=== PATIENT | male | born 2000 | race Caucasian/White ===

== ENCOUNTER → 2023-01-11 | Outpatient (CLI) | payer OTHER ==
--- NOTE | 2023-01-11 14:05 | XR ---
EXAMINATION TYPE: XR hand complete LT DATE OF EXAM: 01/11/2023 1:59 PM INDICATION: Patient age:Male; 22 years old; Reason for study: S61.203A open wound L middle finger; PHH. COMPARISON: None TECHNIQUE: Frontal, lateral and oblique views of the left hand were obtained. FINDINGS: Normal alignment of the visualized joints. No osseous erosions. No radiopaque foreign body . No acute osseous pathology is identified. No evidence of soft tissue swelling. IMPRESSION: No acute osseous pathology.
== END | disposition home or self-care (01) ==
LOC: RADXRMAIN 13:24
PROVIDERS: ATTEND Emergency Medicine
DX: S61.203A Unspecified open wound of left middle finger without damage to nail, initial encounter (principal)